=== PATIENT | female | born 1985 | race Caucasian/White ===

== ENCOUNTER 2018-09-03 18:21 | Emergency (ER) | payer MEDICAID, SELFPAY ==
[~2018-09-03] VITALS: Ht 165.1 cm; Wt 85.7 kg
[2018-09-03 20:57] VITALS: BP 153/85
== END 2018-09-03 22:07 | disposition home or self-care (01) ==
LOC: ED 21:44
DX: R10.84 Generalized abdominal pain (principal); R19.7 Diarrhea, unspecified; I10 Essential (primary) hypertension; F17.200 Nicotine dependence, unspecified, uncomplicated; Z90.49 Acquired absence of other specified parts of digestive tract
CPT/HCPCS: 36415; 74177; 80053; 83690; 84703; 85025; 85610; 96374; 96375; 99284; J2270; J2405; J2765; Q9967